=== PATIENT | male | born 1985 | race Two or more races ===

== ENCOUNTER 2018-10-27 21:13 | Emergency (ER) | payer SELFPAY ==
[~2018-10-27] VITALS: Ht 165.1 cm; Wt 72.6 kg
[2018-10-27 21:43] VITALS: BP 143/97
--- NOTE | 2018-10-27 21:43 | NUR ---
PT AMBULATORY W/ STEADY GAIT, RESP EVEN & UNLABORED, HERE FOR INTERMITTENT LT SIDE TO RT SIDE ABD PAIN W/ N/VX2 TODAY. VSS AT THIS TIME. PT ADVISED ER SATURATED, NO AVAILABLE BEDS AT THIS TIME, TO WAIT IN ER WR UNTIL CALLED FOR FURTHER EVAL FR [facility].
--- NOTE | 2018-10-27 22:51 | NUR ---
PT CALLED TO BED FOR MD MURILLO. ER ADMITTING INFORMED PT HAS LEFT ER. PT LWBS.
== END 2018-10-27 22:52 | disposition left against medical advice (07) ==
LOC: ER 21:13
DX: Z53.21 Procedure and treatment not carried out due to patient leaving prior to being seen by health care provider (principal); R10.9 Unspecified abdominal pain; I10 Essential (primary) hypertension; Z98.890 Other specified postprocedural states